=== PATIENT | male | born 1975 | race Caucasian/White ===

== ENCOUNTER 2017-12-09 19:49 | Emergency (ER) | payer OTHER ==
[2017-12-09] MEDS ORDERED: Sodium Chloride 0.9% 1,000 ML IV ONE (20:00)
[2017-12-09] MEDS ORDERED: Ketorolac 30 MG/ML SDV IVPUSH ONE (20:00)
[2017-12-09] MEDS ORDERED: Ondansetron 4 MG/2 ML SDV IVPUSH ONE (20:00)
--- NOTE | 2017-12-09 20:01 | EDM.PDOC ---
ED HPI GENERAL MEDICAL PROBLEM - General Stated Complaint: STOMACH PAIN/NAUSEA Time Seen by Provider: 12/09/17 20:00 Source of Information: Reports: Patient - History of Present Illness INITIAL COMMENTS - FREE TEXT/NARRATIVE: HISTORY AND PHYSICAL: History of present illness: [Patient presents with abdominal bloating sensation mild intermittent pain 2 out of 10 diffuse nonfocal nonradiating no vomiting chills sweats some intermittent nausea last bowel movement was this morning actually has had a bowel movement here in the ER No fever vomiting chills sweats no chest pain shortness breath headache dizziness palpitation no bowel or urine symptoms] Review of systems: As per history of present illness and below otherwise all systems reviewed and negative. Past medical history: As per history of present illness and as reviewed below otherwise noncontributory. Surgical history: As per history of present illness and as reviewed below otherwise noncontributory. Social history: No reported history of drug or alcohol abuse. Family history: As per history of present illness and as reviewed below otherwise noncontributory. Physical exam: HEENT: Atraumatic, normocephalic, pupils reactive, negative for conjunctival pallor or scleral icterus, mucous membranes moist, throat clear, neck supple, nontender, trachea midline. Lungs: Clear to auscultation, breath sounds equal bilaterally, chest nontender. Heart: S1S2, regular, negative for clicks, rubs, or JVD. Abdomen: Soft, nondistended, nontender. Negative for masses or hepatosplenomegaly. Negative for costovertebral tenderness. Pelvis: Stable nontender. Genitourinary: Deferred. Rectal: Deferred. Extremities: Atraumatic, negative for cords or calf pain. Neurovascular unremarkable. Neuro: Awake, alert, oriented. Cranial nerves II through XII unremarkable. Cerebellum unremarkable. Motor and sensory unremarkable throughout. Exam nonfocal. Diagnostics: [CBC CMP UA lipase UA Flat and upright ] Therapeutics: 1 L normal saline bolus Zofran 8 mg IV Toradol 30 mg IV Reglan 10 mg MiraLAX Gas-X Reglan [id number] symptomatic therapies discussed Liquid diet until stool clears return if symptoms persist or worsen [] Impression: [ colicky abdominal pain Mild constipation ] Definitive disposition and diagnosis as appropriate pending reevaluation and review of above. mid abd Pain Score (Numeric/FACES): 1 - Related Data Allergies Allergy/AdvReac Type Severity Reaction Status Date / Time No Known Allergies Allergy Verified 12/09/17 20:07 Home Meds: Home Meds . [No Known Home Meds] 12/09/17 [History] ED ROS GENERAL - Review of Systems Review Of Systems: ROS reveals no pertinent complaints other than HPI. ED EXAM, GENERAL - Physical Exam Exam: See Below Course - Vital Signs Last Recorded V/S: Last Vital Signs Temp 98.0 F 12/09/17 21:33 Pulse 87 12/09/17 21:33 Resp 18 12/09/17 21:33 BP 109/75 12/09/17 21:33 Pulse Ox 96 12/09/17 21:33 - Orders/Labs/Meds Orders: Active Orders 24 hr Category Date Time Status Abdomen 2V AP Flat Upright [CR] Stat Exams 12/09/17 20:39 Taken UA W/MICROSCOPIC [URIN] Stat Lab 12/09/17 20:15 Ordered Labs: Laboratory Tests 12/09/17 12/09/17 12/09/17 Range/Units 20:15 20:15 20:15 WBC 8.89 (4.0-11.0) K/uL RBC 5.15 (4.50-5.90) M/uL Hgb 15.9 (13.0-17.0) g/dL Hct 45.5 (38.0-50.0) % MCV 88.3 (80.0-98.0) fL MCH 30.9 (27.0-32.0) pg MCHC 34.9 (31.0-37.0) g/dL RDW Std Deviation 42.7 (28.0-62.0) fl RDW Coeff of Whitney 13 (11.0-15.0) % Plt Count 173 (150-400) K/uL MPV 9.40 (7.40-12.00) fL Neut % (Auto) 85.7 H (48.0-80.0) % Lymph % (Auto) 10.1 L (16.0-40.0) % [place]wey % (Auto) 3.9 (0.0-15.0) % Eos % (Auto) 0.3 (0.0-7.0) % Baso % (Auto) 0.0 (0.0-1.5) % Neut # (Auto) 7.6 H (1.4-5.7) K/uL Lymph # (Auto) 0.9 (0.6-2.4) K/uL Dewey # (Auto) 0.4 (0.0-0.8) K/uL Eos # (Auto) 0.0 (0.0-0.7) K/uL Baso # (Auto) 0.0 (0.0-0.1) K/uL Nucleated RBC % 0.0 /100WBC Nucleated RBCs # 0 K/uL Sodium 140 (136-148) mmol/L Potassium 3.5 (3.5-5.1) mmol/L Chloride 105 (98-107) mmol/L Carbon Dioxide 25.2 (21.0-32.0) mmol/L BUN 17 (7.0-18.0) mg/dL Creatinine 1.1 (0.8-1.3) mg/dL Est Cr Clr Drug Dosing 80.96 mL/min Estimated GFR (MDRD) > 60.0 ml/min Glucose 124 H (74-106) mg/dL Calcium 9.1 (8.5-10.1) mg/dL Total Bilirubin 0.5 (0.2-1.0) mg/dL AST 26 (15-37) IU/L ALT 51 (14-63) IU/L Alkaline Phosphatase 81 (46-116) U/L Troponin I < 0.050 (0.000-0.056) ng/mL Total Protein 8.0 (6.4-8.2) g/dL Albumin 4.2 (3.4-5.0) g/dL Globulin 3.8 H (2.0-3.5) g/dL Albumin/Globulin Ratio 1.1 L (1.3-2.8) Lipase 107 (73-393) U/L Urine Color YELLOW Urine Appearance CLEAR Urine pH 7.0 (5.0-8.0) Ur Specific [place] 1.020 (1.001-1.035) Urine Protein NEGATIVE (NEGATIVE) mg/dL Urine Glucose (UA) NEGATIVE (NEGATIVE) mg/dL Urine Ketones NEGATIVE (NEGATIVE) mg/dL Urine Occult Blood NEGATIVE (NEGATIVE) Urine Nitrite NEGATIVE (NEGATIVE) Urine Bilirubin NEGATIVE (NEGATIVE) Urine Urobilinogen 0.2 (<2.0) EU/dL Ur Leukocyte Esterase NEGATIVE (NEGATIVE) Urine RBC 0-1 (0-2/HPF) Urine WBC 0-1 (0-5/HPF) Ur Epithelial Cells RARE (NONE-FEW) Urine Bacteria FEW (NEGATIVE) Meds: Medications Discontinued Medications Generic Name Dose Route Start Last Admin Trade Name Eduardo PRN Reason Stop Dose Admin Sodium Chloride 1,000 mls @ 999 mls/hr 12/09/17 20:00 12/09/17 20:17 Normal Saline IV 12/09/17 21:00 999 mls/hr STAT ONE Administration Ketorolac Tromethamine 30 mg 12/09/17 20:00 12/09/17 20:17 Toradol IVPUSH 12/09/17 20:01 30 mg ONETIME ONE Administration Metoclopramide HCl 10 mg 12/09/17 21:41 Reglan IV 12/09/17 21:42 ONETIME ONE Ondansetron HCl 8 mg 12/09/17 20:00 12/09/17 20:17 Zofran IVPUSH 12/09/17 20:01 8 mg ONETIME ONE Administration Departure - Departure Time of Disposition: 22:12 Disposition: Home, Self-Care 01 Condition: Good Clinical Impression: Abdominal pain - Discharge Information Referrals: PCP,None [Primary Care Provider] - Additional Instructions: Medication as prescribed MiraLAX daily until clear Clear liquid diet 12-24 hours Gas-X 4 times daily may benefit Return if symptoms persist or worsen or new concerning symptoms develop [id number] symptomatic therapy such as fleets enemas glycerin suppositories her stool softeners may benefit Follow-up with primary care in 2 weeks sooner as needed [facility] [address] [place] [id number] The following information is given to patients seen in the emergency department who are being discharged to home. This information is to outline your options for follow-up care. We provide all patients seen in our emergency department with a follow-up referral. The need for follow-up, as well as the timing and circumstances, are variable depending upon the specifics of your emergency department visit. If you don't have a primary care physician on staff, we will provide you with a referral. We always advise you to contact your personal physician following an emergency department visit to inform them of the circumstance of the visit and for follow-up with them and/or the need for any referrals to a consulting specialist. The emergency department will also refer you to a specialist when appropriate. This referral assures that you have the opportunity for follow-up care with a specialist. All of these measure are taken in an effort to provide you with optimal care, which includes your follow-up. Under all circumstances we always encourage you to contact your private physician who remains a resource for coordinating your care. When calling for follow-up care, please make the office aware that this follow-up is from your recent emergency room visit. If for any reason you are refused follow-up, please contact the [facility] emergency department at and asked to speak to the emergency department charge nurse. - My Orders Last 24 Hours: My Active Orders 12/09/17 20:15 UA W/MICROSCOPIC [URIN] Stat 12/09/17 20:39 Abdomen 2V AP Flat Upright [CR] Stat - Assessment/Plan Last 24 Hours: My Active Orders 12/09/17 20:15 UA W/MICROSCOPIC [URIN] Stat 12/09/17 20:39 Abdomen 2V AP Flat Upright [CR] Stat
[2017-12-09 20:43] LABS: CHLORIDE,CL 105 mmol/L (98-107); SODIUM,NA 140 mmol/L (136-148)
[2017-12-09] MEDS ORDERED: Metoclopramide 10 MG/2 ML SDV IV ONE (21:41)
--- NOTE | 2017-12-12 09:31 | CR ---
EXAM DATE: 12/09/17 PATIENT'S AGE: 42 Patient: CESAR DAVIS Facility: [place], [place] Site . Site : 1975 Study: XRay Abdomen [id number]/18/2018 9:36:23 PM Ordering Physician: Ronald Garcia Final Report: INDICATION: Abdominal pain. TECHNIQUE: Upright and supine views of the abdomen, total of 4 images. IMPRESSION : The bowel gas pattern is nonobstructive. Upright exam shows no free air under the hemidiaphragms. Mild volume of colonic stool. No pathologic abdominal calcifications. Dictated by Jesús Amador MD @ 12/09/2017 9:57:45 PM Dictated by: Jesús Amador MD @ 12/09/2017 21:57:48 (Electronic Signature) Report Signed by Proxy. [facility] MED[facility] CENTERGuillermo
== END 2017-12-09 22:27 | disposition home or self-care (01) ==
LOC: MW.ED 19:49
DX: K59.00 Constipation, unspecified (principal)
CPT/HCPCS: 36415; 74019; 80053; 81001; 83690; 84484; 85025; 96361; 96374; 96375; 99284; J1885; J2405; J7040; 99283

== ENCOUNTER 2019-05-16 22:39 | Emergency (ER) | payer OTHER ==
--- NOTE | 2019-05-16 22:45 | EDM.PDOC ---
ED HPI GENERAL MEDICAL PROBLEM - General Stated Complaint: MUSCLE PAIN IN LEFT ARM Time Seen by Provider: 05/16/19 22:45 Source of Information: Reports: Patient - History of Present Illness INITIAL COMMENTS - FREE TEXT/NARRATIVE: HISTORY AND PHYSICAL: History of present illness: [Patient had performed some pushups this morning he states that he felt some pain across his chest on the left arm that lasted for 15 minutes earlier, is completely asymptomatic at current no diaphoresis shortness of breath no radiation to neck or jaw no fever nausea vomiting chills sweats no current chest pain headache dizziness or palpitation no bowel or urine symptoms I am able to reproduce symptoms with palpation over left bicep and with movement of the arm there is slight muscle spasm likely secondary to the pushups performed , mild Denies chronic illness disease or medications Denies family history of early cardiac or cardiac disease No apparent distress whatsoever Review of systems: As per history of present illness and below otherwise all systems reviewed and negative. Past medical history: As per history of present illness and as reviewed below otherwise noncontributory. Surgical history: As per history of present illness and as reviewed below otherwise noncontributory. Social history: No reported history of drug or alcohol abuse. Family history: As per history of present illness and as reviewed below otherwise noncontributory. Physical exam: HEENT: Atraumatic, normocephalic, pupils reactive, negative for conjunctival pallor or scleral icterus, mucous membranes moist, throat clear, neck supple, nontender, trachea midline. Lungs: Clear to auscultation, breath sounds equal bilaterally, chest nontender. Heart: S1S2, regular, negative for clicks, rubs, or JVD. Abdomen: Soft, nondistended, nontender. Negative for masses or hepatosplenomegaly. Negative for costovertebral tenderness. Pelvis: Stable nontender. Genitourinary: Deferred. Rectal: Deferred. Extremities: Atraumatic, negative for cords or calf pain. Neurovascular unremarkable. Neuro: Awake, alert, oriented. Cranial nerves II through XII unremarkable. Cerebellum unremarkable. Motor and sensory unremarkable throughout. Exam nonfocal. Diagnostics: EKG [] Therapeutics: [] Impression: medical screening exam ] Definitive disposition and diagnosis as appropriate pending reevaluation and review of above. left chest/arm Pain Score (Numeric/FACES): 1 - Related Data Allergies Allergy/AdvReac Type Severity Reaction Status Date / Time No Known Allergies Allergy Verified 05/16/19 22:51 Home Meds: Home Meds . [No Known Home Meds] 12/09/17 [History] Past Medical History - Past Health History Medical/Surgical History: Denies Medical/Surgical History - Infectious Disease History Infectious Disease History: Reports: Chicken Pox Social & Family History - Caffeine Use Caffeine Use: Reports: None ED ROS GENERAL - Review of Systems Review Of Systems: See Below ED EXAM, GENERAL - Physical Exam Exam: See Below Course - Vital Signs Last Recorded V/S: Last Vital Signs Temp 97 F 05/16/19 22:51 Pulse 82 05/16/19 22:51 Resp 18 05/16/19 22:51 BP 115/73 05/16/19 22:51 Pulse Ox 98 05/16/19 22:51 - Orders/Labs/Meds Orders: Active Orders 24 hr Category Date Time Status EKG Documentation Completion [RC] STAT Care 05/16/19 22:42 Active Departure - Departure Time of Disposition: 23:03 Disposition: Home, Self-Care 01 Condition: Good Clinical Impression: Encounter for medical screening examination - Discharge Information Additional Instructions: The following information is given to patients seen in the emergency department who are being discharged to home. This information is to outline your options for follow-up care. We provide all patients seen in our emergency department with a follow-up referral. The need for follow-up, as well as the timing and circumstances, are variable depending upon the specifics of your emergency department visit. If you don't have a primary care physician on staff, we will provide you with a referral. We always advise you to contact your personal physician following an emergency department visit to inform them of the circumstance of the visit and for follow-up with them and/or the need for any referrals to a consulting specialist. The emergency department will also refer you to a specialist when appropriate. This referral assures that you have the opportunity for follow-up care with a specialist. All of these measure are taken in an effort to provide you with optimal care, which includes your follow-up. Under all circumstances we always encourage you to contact your private physician who remains a resource for coordinating your care. When calling for follow-up care, please make the office aware that this follow-up is from your recent emergency room visit. If for any reason you are refused follow-up, please contact the [facility] emergency department at and asked to speak to the emergency department charge nurse. - My Orders Last 24 Hours: My Active Orders 05/16/19 22:42 EKG Documentation Completion [RC] STAT - Assessment/Plan Last 24 Hours: My Active Orders 05/16/19 22:42 EKG Documentation Completion [RC] STAT
== END 2019-05-16 23:12 | disposition home or self-care (01) ==
LOC: MW.ED 22:39
DX: Z13.9 Encounter for screening, unspecified (principal)
CPT/HCPCS: 99282; 99284-25

== ENCOUNTER 2021-02-03 23:58 | Emergency (ER) | payer BC, OTHER ==
[2021-02-04] MEDS ORDERED: Dextrose 5%-Lactated Ringers 1,000 ML IV SCH (00:45)
[2021-02-04 01:29] LABS: BLOOD UREA NITROGEN,BUN 17 mg/dL (7.0-18.0); CARBON DIOXIDE,CO2 25.3 mmol/L (21.0-32.0); CHLORIDE,CL 103 mmol/L (98-107); GLUCOSE RANDOM 100 mg/dL (74-106); POTASSIUM,K 3.6 mmol/L (3.5-5.1); SODIUM,NA 139 mmol/L (136-148)
--- NOTE | 2021-02-04 01:54 | CR ---
Indication: Dizzy Technique: Chest 1 view Comparison: None Findings/Impression: Cardiovascular and mediastinum: Heart size and vasculature are normal in caliber and appearance. Lungs and pleural space: No pleural effusion or pneumothorax. No acute consolidation. Calcified granuloma right lung base. Bones and soft tissues: No acute findings. Dictated by Ralph Aldana MD @ 02/04/2021 1:51:[address] Ralph Aldana @ Feb 04 2021 1:51AM
--- NOTE | 2021-02-04 02:44 | EDM.PDOC ---
ED HPI GENERAL MEDICAL PROBLEM - General Chief Complaint: General Stated Complaint: TROUBLE FOCUSING, DIZZINESS,RED SPOT RT EYE Time Seen by Provider: 02/04/21 00:16 - History of Present Illness INITIAL COMMENTS - FREE TEXT/NARRATIVE: CHIEF COMPLAINT(S): Dizziness HISTORY OF PRESENT ILLNESS: This is a 46-year-old man without any past medical history who comes to the emergency department with a chief complaint of dizziness. The patient states that approximately 2 days ago while he was at work he started to become dizzy and it was hard for him to focus on his job. 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 He denied any headache, numbness, tingling, or weakness. Denies chest pain or shortness of breath. He states that he went outside drink some water and then everything seemed to improve. He states that every day that he is gone to work this week he has had similar symptoms and his coworker said that his eyes look tired. He states that after he gets home from work and he goes to bed he wakes up and he feels fine and then at the evening when he is at work it seems to worsen. He states that nobody else seems to be having the same symptoms other than him. He denies any double vision, fever, chills, neck pain or stiffness. REVIEW OF SYSTEMS: Constitutional: Denies fever, chills. Eyes: Denies eye pain Ears, Nose, Mouth, & Throat: Denies earache Cardiovascular: Denies chest pain Respiratory: Denies shortness of breath Gastrointestinal: Denies Nausea, vomiting, diarrhea, hematochezia. Genitourinary: Denies hematuria Skin:Denies a rash MSK: Denies joint pain Neurological: Positive for dizziness and blurred vision. Denies double vision, numbness, tingling, weakness Psychiatric: Denies depression PAST MEDICAL HISTORY: As per history of present illness and as reviewed below otherwise noncontributory. SURGICAL HISTORY: As per history of present illness and as reviewed below otherwise noncontributory. SOCIAL HISTORY: As per history of present illness and as reviewed below otherwise noncontributory. FAMILY HISTORY: As per history of present illness and as reviewed below otherwise noncontributory. EXAMINATION OF ORGAN SYSTEMS/BODY AREAS: Constitutional: Blood pressure is 132/93, heart rate 102, respiratory rate 16 with an oxygen saturation of 97% on room air. Temperature 36.3 General: Overall well-appearing man who is in no acute distress Psychiatric: Appropriate mood and affect. Eyes: No scleral icterus or conjunctival erythema there is a subconjunctival hemorrhage on the right lateral eye. Pupils are equal round and reactive to light. Extraocular movements intact. No vertical horizontal nystagmus. ENMT: Moist mucous membranes. No pharyngeal erythema Cardiovascular: Regular, rate, and rhythm. No gallops, murmurs, or rubs. Bilateral upper extremity pulses symmetric and intact. No peripheral edema. No JVD. Respiratory: Lungs clear to auscultation bilaterally. No wheezes, rales, or rhonchi. Gastrointestinal: Soft, non-tender, non-distended. Normoactive bowel sounds Genitourinary: No suprapubic tenderness Musculoskeletal: Normal range of motion. Skin: No lesions or abrasions. Neurological: AOx4. CN grossly intact. Strength 5/5 in bilateral upper and lower extremity. Sensation is intact bilaterally in upper and lower extremity. Gait appears normal. Finger to nose, heel to [place], rapid alternating movements intact. MEDICAL DECISION MAKING AND COURSE IN THE ED WITH INTERPRETATION/REVIEW OF DIAGNOSTIC STUDIES: This is a 46-year-old man without any significant past medical history who comes to the emergency department with acute intermittent dizziness, trouble focusing and presyncopal symptoms while at work. The patient's examination is completely normal today and has no focal neurological deficit. 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 Will obtain a carbon monoxide level. At this time differential also includes dehydration electrolyte abnormalities. Patient is young and low risk for ACS however ACS is also consideration. Will obtain a troponin, EKG and chest x-ray. Also obtain TSH and T4. We will provide the patient with 1 L of D5 lactated Ringer's. EKG was obtained which did not reveal any acute signs of ischemia. Heart Score History: Slightly or Non-Suspicious (0) ECG: Normal (0) Age: 45-64 (1) Risk Factors: No known risk factors (0) Initial Troponin: </= normal limit (0) Total Score: 1 Wells Criteria Clinical signs/symptoms of DVT: No (0) PE #1 Dx or equally likely: No (0) Heart Rate >100: Yes (1.5) Immobilization for 3 days or surgery in last month: No (0) Previously Dx PE or DVT: No (0) Hemoptysis: No (0) Malignancy w/ Tx within 6 months or palliative: No (0) Wells Score: 1.5 -> low risk no need for further workup Laboratory: CBC is unremarkable. Carboxyhemoglobin is normal. CMP is unremarkable. Troponin is negative. TSH and T4 are normal. The radiological images were viewed by myself along with reading the report from the radiologist. Chest x-ray does not reveal any acute cardiopulmonary process. 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 I did encourage the patient to maintain hydration and to carry sugary candy when he starts to feel weak. I discussed that if he had any worsening symptoms he is welcome to return to the emergency department. Otherwise he needs to follow-up with his primary care physician within 2 to 3 days. He was amenable discharge at this time and had no further questions DISPOSITION: The patient was discharged home in stable condition. The patient will follow up with primary care physician in 2 to 3 days CONDITION: Fair PROCEDURES: None FINAL IMPRESSION(S)/DIAGNOSES: 1. Acute dizziness likely secondary to heat exhaustion versus dehydration Owen Quinteros M.D. - Related Data Allergies Allergy/AdvReac Type Severity Reaction Status Date / Time No Known Allergies Allergy Verified 05/16/19 22:51 Home Meds: Home Meds . [No Known Home Meds] 12/09/17 [History] Past Medical History - Past Health History Medical/Surgical History: Denies Medical/Surgical History HEENT History: Reports: None Cardiovascular History: Reports: High Cholesterol Respiratory History: Reports: None Gastrointestinal History: Reports: None Genitourinary History: Reports: None Musculoskeletal History: Reports: None Neurological History: Reports: None Psychiatric History: Reports: None Endocrine/Metabolic History: Reports: None Insulin Pump Model and Deployment Specialist: None Hematologic History: Reports: None Immunologic History: Reports: None Oncologic (Cancer) History: Reports: None Dermatologic History: Reports: None - Infectious Disease History Infectious Disease History: Reports: Chicken Pox - Past Surgical History Head Surgeries/Procedures: Reports: None Social & Family History - Family History Family Medical History: No Pertinent Family History - Tobacco Use Tobacco Use Status *Q: Never Tobacco User Second Hand Smoke Exposure: No - Caffeine Use Caffeine Use: Reports: None - Recreational Drug Use Recreational Drug Use: No ED ROS GENERAL - Review of Systems Review Of Systems: See Below ED EXAM, GENERAL - Physical Exam Exam: See Below Course - Vital Signs Last Recorded V/S: Last Vital Signs Temp 36.3 C 02/04/21 00:13 Pulse 89 02/04/21 02:55 Resp 16 02/04/21 02:55 BP 112/70 02/04/21 02:55 Pulse Ox 97 02/04/21 02:55 - Orders/Labs/Meds Labs: Laboratory Tests 02/04/21 02/04/21 02/04/21 Range/Units 00:55 00:55 00:55 WBC 6.09 (4.0-11.0) K/uL RBC 4.57 (4.50-5.90) M/uL Hgb 14.3 (13.0-17.0) g/dL Hct 41.0 (38.0-50.0) % MCV 89.7 (80.0-98.0) fL MCH 31.3 (27.0-32.0) pg MCHC 34.9 (31.0-37.0) g/dL RDW Std Deviation 41.5 (28.0-62.0) fl RDW Coeff of Whitney 13 (11.0-15.0) % Plt Count 184 (150-400) K/uL MPV 9.50 (7.40-12.00) fL Neut % (Auto) 64.3 (48.0-80.0) % Lymph % (Auto) 24.5 (16.0-40.0) % [place] % (Auto) 10.3 (0.0-15.0) % Eos % (Auto) 0.7 (0.0-7.0) % Baso % (Auto) 0.2 (0.0-1.5) % Neut # (Auto) 3.9 (1.4-5.7) K/uL Lymph # (Auto) 1.5 (0.6-2.4) K/uL [place] # (Auto) 0.6 (0.0-0.8) K/uL Eos # (Auto) 0.0 (0.0-0.7) K/uL Baso # (Auto) 0.0 (0.0-0.1) K/uL ABG Carboxyhemoglobin 2.9 (0-15) % Sodium 139 (136-148) mmol/L Potassium 3.6 (3.5-5.1) mmol/L Chloride 103 (98-107) mmol/L Carbon Dioxide 25.3 (21.0-32.0) mmol/L BUN 17 (7.0-18.0) mg/dL Creatinine 1.1 (0.8-1.3) mg/dL Est Cr Clr Drug Dosing 77.62 mL/min Estimated GFR (MDRD) > 60.0 ml/min Glucose 100 (74-106) mg/dL Calcium 8.6 (8.5-10.1) mg/dL Total Bilirubin 0.4 (0.2-1.0) mg/dL AST 29 (15-37) IU/L ALT 48 (14-63) IU/L Alkaline Phosphatase 83 (46-116) U/L Creatine Kinase 213 (26-308) U/L Troponin I < 0.050 (0.000-0.056) ng/mL Total Protein 7.4 (6.4-8.2) g/dL Albumin 3.9 (3.4-5.0) g/dL Globulin 3.5 (2.6-4.0) g/dL Albumin/Globulin Ratio 1.1 (0.9-1.6) Free T4 0.82 (0.76-1.46) ng/dL TSH 3rd Generation 3.30 (0.36-3.74) uIU/mL Meds: Medications Discontinued Medications Generic Name Dose Route Start Last Admin Trade Name Freq PRN Reason Stop Dose Admin Dextrose/Lactated Ringer's 1,000 mls @ 999 mls/hr 02/04/21 00:45 02/04/21 01:06 Dextrose 5%-Lactated Ringers IV 999 mls/hr ASDIRECTED MYKEL Administration Departure - Departure Time of Disposition: 02:43 Disposition: Home, Self-Care 01 Condition: Fair Clinical Impression: Dizzy spells, Heat exhaustion - Discharge Information *PRESCRIPTION DRUG MONITORING PROGRAM REVIEWED*: No *COPY OF PRESCRIPTION DRUG MONITORING REPORT IN PATIENT JOVANNA: No Instructions: Heat Exhaustion, Preventing Heat Exhaustion, Adult, Dizziness, [id number] Referrals: PCP,None [Primary Care Provider] - Forms: ED Department Discharge Additional Instructions: You were evaluated today on an emergent basis. At this time all of your work-up was negative. 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 I do recommend that you continue to hydrate while at work with Gatorade or Pedialyte. In addition I would use small sugar candies to keep your sugar up while at work. If you have any worsening symptoms I recommend you return to the emergency department. Otherwise please follow-up with your primary care physician in 3 to 5 days. [facility] [address] [place] [address] [place] [address] The patient is informed of any results of their evaluation and diagnostic workup and all questions are answered. They are given discharge instructions and return precautions. The patient is stable for discharge. The patient states they understand and agree with the plan and that they will return if their symptoms get worse or if they have any new concerns. The following information is given to patients seen in the emergency department who are being discharged to home. This information is to outline your options for follow-up care. We provide all patients seen in our emergency department with a follow-up referral. The need for follow-up, as well as the timing and circumstances, are variable depending upon the specifics of your emergency department visit. If you don't have a primary care physician on staff, we will provide you with a referral. We always advise you to contact your personal physician following an emergency department visit to inform them of the circumstance of the visit and for follow-up with them and/or the need for any referrals to a consulting specialist. The emergency department will also refer you to a specialist when appropriate. This referral assures that you have the opportunity for follow-up care with a specialist. All of these measure are taken in an effort to provide you with optimal care, which includes your follow-up. Under all circumstances we always encourage you to contact your private physician who remains a resource for coordinating your care. When calling for follow-up care, please make the office aware that this follow-up is from your recent emergency room visit. If for any reason you are refused follow-up, please contact the [facility] Emergency Department at and asked to speak to the emergency department charge nurse. Sepsis Event Note (ED) - Evaluation Sepsis Screening Result: No Definite Risk
--- NOTE | 2021-02-04 03:04 | PCM.EKG ---
#1 Interpretation EKG Date: 02/04/21 Time: 01:05 Rhythm: NSR Rate (Beats/Min): 89 [place]: Normal P-Wave: Present QRS: Normal ST-T: Normal QT: Normal Comparison: No Change (05/16/19) EKG Interpretation Comments: Sinus Rhythm
== END 2021-02-04 02:52 | disposition home or self-care (01) ==
LOC: MW.ED 23:58
DX: T67.5XXA Heat exhaustion, unspecified, initial encounter (principal); R42 Dizziness and giddiness
CPT/HCPCS: 36415; 71045; 80053; 82375; 82550; 84439; 84443; 84484; 85025; 93005; 99284; J7121; 93010

== ENCOUNTER 2022-05-26 16:41 | Emergency (ER) | payer BC ==
[2022-05-26 18:44] LABS: CORONAVIRUS COVID-19 NAA NEGATIVE (NEGATIVE); INFLUENZA A NAA NEGATIVE (NEGATIVE); INFLUENZA B NAA NEGATIVE (NEGATIVE)
== END 2022-05-26 19:49 | disposition home or self-care (01) ==
LOC: MW.ED 16:41
DX: J40 Bronchitis, not specified as acute or chronic (principal); Z20.822 Contact with and (suspected) exposure to COVID-19
CPT/HCPCS: 0240U; 71045; 93005; 99284

== ENCOUNTER 2022-11-14 11:40 | Emergency (ER) | payer BC ==
[2022-11-14] MEDS ORDERED: Albuterol/Ipratropium 3.0-0.5 MG/3 ML Neb Soln NEB ONE (12:50)
[2022-11-14] MEDS ORDERED: Lidocaine 1% 5 ML VIAL STA (12:50)
== END 2022-11-14 13:43 | disposition home or self-care (01) ==
LOC: MW.ED 11:40
DX: J68.9 Unspecified respiratory condition due to chemicals, gases, fumes and vapors (principal); Z86.16 Personal history of COVID-19; Z79.899 Other long term (current) drug therapy
CPT/HCPCS: 71045; 71045-26; 99283; J3490; J7620-GY

== ENCOUNTER 2024-03-06 04:30 | Emergency (ER) | payer BC ==
[2024-03-06 05:06] LABS: EOSINOPHILS ABSOLUTE AUTO 0.13 K/uL (0.00-0.45); EOSINOPHILS PERCENT AUTO 2.8 % (0.0-6.0); HEMATOCRIT 40.1 % (42.0-52.0); HEMOGLOBIN 14.1 g/dL (14.0-18.0); IMMATURE GRAN ABSOLUTE AUTO 0.01 K/uL (0.00-0.05); IMMATURE GRAN PERCENT AUTO 0.2 % (0.0-0.4); LYMPHOCYTES ABSOLUTE AUTO 2.12 K/uL (1.00-4.80); LYMPHOCYTES PERCENT AUTO 45.3 % (24.0-44.0); MEAN CORPUSCULAR HEMOGLOBIN 30.9 pg (28.0-32.0); MEAN CORPUSCULAR HGB CONC 35.2 g/dL (32.0-36.0); MEAN CORPUSCULAR VOLUME 87.9 fL (83.0-99.0); MEAN PLATELET VOLUME 8.8 fL (9.4-12.4); MONOCYTES ABSOLUTE AUTO 0.47 K/uL (0.00-0.80); NEUTROPHILS ABSOLUTE AUTO 1.95 K/uL (1.80-7.70); NEUTROPHILS PERCENT AUTO 41.7 % (41.0-71.0); PLATELET COUNT,PLT 209 K/uL (150-400); RED BLOOD CELL COUNT 4.56 M/uL (4.52-5.90); WHITE BLOOD CELL COUNT,WBC 4.68 K/uL (3.9-11.3)
[2024-03-06 05:26] LABS: ALBUMIN 3.6 g/dL (3.4-5.0); BILIRUBIN TOTAL 0.2 mg/dL (0.2-1.0); CALCIUM 8.6 mg/dL (8.5-10.1); CARBON DIOXIDE,CO2 24.1 mmol/L (21.0-32.0); EST CRCL DRUG DOSING (CG) 85.5 mL/min; POTASSIUM,K 3.4 mmol/L (3.5-5.1); PROTEIN TOTAL,TP 7.3 g/dL (6.4-8.2)
== END 2024-03-06 05:36 | disposition home or self-care (01) ==
LOC: MW.ED 04:30
DX: R10.32 Left lower quadrant pain (principal); Z86.16 Personal history of COVID-19
CPT/HCPCS: 36415; 80053; 85025; 99283; 99284